=== PATIENT | female | born 1990 | race Caucasian/White ===

== ENCOUNTER 2024-02-05 21:27 | Outpatient (CLI) | payer BC ==
[2024-02-05 23:21] LABS: FREE T4 (FREE THYROXINE) 1.04 NG/DL (0.73-1.40); THYROID STIMULATING HORMONE 2.41 ulU/ml (0.34-4.50)
== END 2024-02-05 23:59 | disposition home or self-care (01) ==
LOC: LAB 21:27
PROVIDERS: ATTEND Physician Assistant
DX: R79.89 Other specified abnormal findings of blood chemistry (principal)
CPT/HCPCS: 36415; 83036; 84439; 84443; 86376

== ENCOUNTER 2024-09-16 20:43 | Outpatient (CLI) | payer BC ==
[2024-09-17 01:36] LABS: BASOPHILS # (AUTO) 0.1 X10'3 (0-0.2); BASOPHILS % (AUTO) 1.1 % (0-1); EOSINOPHILS # (AUTO) 0.5 X10'3 (0-0.9); EOSINOPHILS % (AUTO) 6.2 % (0-6); HEMATOCRIT 43.1 % (35.0-45.0); HEMOGLOBIN 14.2 g/dl (12.0-16.0); LYMPHOCYTES # (AUTO) 3.1 X10'3 (1.1-4.8); MEAN CORPUSCULAR HEMOGLOBIN 29.2 PG (27.0-31.0); MEAN CORPUSCULAR HGB CONC 33.1 g/dL (33.0-36.5); MEAN CORPUSCULAR VOLUME 88.3 FL (78-98); MEAN PLATELET VOLUME 8.6 FL (7.4-10.4); MONOCYTES # (AUTO) 0.7 X10'3 (0-0.9); MONOCYTES % (AUTO) 8.9 % (2-12); NEUTROPHILS # (AUTO) 3.2 X10'3 (1.8-7.7); NEUTROPHILS % (AUTO) 42.8 % (42-75); PLATELET COUNT 296 X10'3 (140-440); RED BLOOD COUNT 4.87 X10'6 (4.20-5.60); RED CELL DISTRIBUTION WIDTH 13.4 % (11.5-14.5); WHITE BLOOD COUNT 7.5 X10'3 (4.5-11.0)
[2024-09-17 01:58] LABS: ALANINE AMINOTRANSFERASE 34 U/L (12-78); ALBUMIN 3.7 G/DL (3.4-5.0); ALBUMIN/GLOBULIN RATIO 1.2 (1.1-1.5); ALKALINE PHOSPHATASE 93 IU/L (46-116); ANION GAP 9 (8-16); ASPARTATE AMINO TRANSFERASE 21 U/L (10-37); BILIRUBIN,TOTAL 0.3 MG/DL (0.1-1.0); BLOOD UREA NITROGEN 10 MG/DL (7-18); CALCIUM 8.8 MG/DL (8.5-10.1); CHLORIDE 105 MMOL/L (99-107); CHOL/HDL RATIO 3.2 (0.00-4.99); CHOLESTEROL 187 MG/DL (0-200); CREATININE 0.83 MG/DL (0.40-0.90); FREE T4 (FREE THYROXINE) 1.15 NG/DL (0.73-1.40); GLUCOSE 93 MG/DL (70-104); HDL CHOLESTEROL 58 MG/DL (35-60); LDL CHOLESTEROL 104 MG/DL (50-100); SODIUM 142 MMOL/L (135-145); THYROID STIMULATING HORMONE 0.87 ulU/ml (0.34-4.50); TOTAL CARBON DIOXIDE 28.1 MMOL/L (24-32); TOTAL PROTEIN 6.9 G/DL (6.4-8.2); TRIGLYCERIDES 112 MG/DL (20-135); eGFR 78 ML/MIN
[2024-09-18 11:16] LABS: FOLATE SERUM(FOLIC) 8.9 ng/mL (>3.0)
== END 2024-09-16 23:59 | disposition home or self-care (01) ==
LOC: ER 20:43 → LAB 23:59
PROVIDERS: ATTEND Physician Assistant
DX: E66.01 Morbid (severe) obesity due to excess calories (principal)
CPT/HCPCS: 36415; 80053; 80061; 82306; 82607; 82746; 84439; 84443; 85025